=== PATIENT | female | born 1980 | race Caucasian/White ===

== ENCOUNTER 2018-03-20 21:40 | Emergency (ER) | payer OTHER ==
[2018-03-20 21:48] VITALS: BP 111/70; PULSE 88; TEMP 98.1; BMI 20.7
--- NOTE | 2018-03-20 22:16 | PDOC ---
History of Present Illness - General History Source: Patient Exam Limitations: No Limitations - History of Present Illness Initial Comments: 03/20/18 22:18 The patient is a 37 year old 1st trimester female, with no significant PMH, who presents to the emergency department with right thumb injury. The patient was helping her child assemble a toy truck when a small piece of the accel from the wheel went through her right thumb. The patient denies any pain, tingling or numbness. The patient denies any bleeding. Allergies: NKDA Past surgical history: None reported Social history: None reported PCP:None reported <Hailey Chicas - Last Filed: 03/20/18 22:18> <Nory Nava - Last Filed: 03/20/18 23:10> - General Chief Complaint: Injury Stated Complaint: RH 1ST FINGER WO UND Time Seen by Provider: 03/20/18 21:41 Past History <Hailey Chicas - Last Filed: 03/20/18 22:18> - Past Medical History Anemia: No Asthma: No Cancer: No Cardiac Disorders: No CVA: No COPD: No CHF: No Dementia: No Diabetes: No GI Disorders: No Disorders: No HTN: No Hypercholesterolemia: No Liver Disease: No Seizures: No Thyroid Disease: No - Surgical History Abdominal Surgery: No Appendectomy: No Cardiac Surgery: No Cholecystectomy: No Lung Surgery: No Neurologic Surgery: No Orthopedic Surgery: No - Suicide/Smoking/Psychosocial Hx Smoking History: Never smoked Have you smoked in the past 12 months: No Hx Alcohol Use: Yes (SOCIAL) Drug/Substance Use Hx: No Substance Use Type: None Hx Substance Use Treatment: No <Nory Nava - Last Filed: 03/20/18 23:10> - Past Medical History Allergies/Adverse Reactions: Allergies Allergy/AdvReac Type Severity Reaction Status Date / Time No Known Allergies Allergy Verified 01/24/16 09:35 Home Medications: Ambulatory Orders NK [No Known Home Medication] 01/14/16 Review of Systems - Review of Systems Able to Perform ROS?: Yes Comments:: 03/20/18 22:19 GENERAL/CONSTITUTIONAL: No fever or chills. No weakness. HEAD, EYES, EARS, NOSE AND THROAT: No change in vision. No ear pain or discharge. No sore throat. CARDIOVASCULAR: No chest pain or shortness of breath. RESPIRATORY: No cough, wheezing, or hemoptysis. GASTROINTESTINAL: No nausea, vomiting, diarrhea or constipation. GENITOURINARY: No dysuria, frequency, or change in urination. MUSCULOSKELETAL: No joint or muscle swelling or pain. No neck or back pain. SKIN:+Foreign Body in the right thumb NEUROLOGIC: No headache, vertigo, loss of consciousness, or change in strength/ sensation. ENDOCRINE: No increased thirst. No abnormal weight change. HEMATOLOGIC/LYMPHATIC: No anemia, easy bleeding, or history of blood clots. ALLERGIC/IMMUNOLOGIC: No hives or skin allergy. <Austin Chicasjaelyn - Last Filed: 03/20/18 22:18> *Physical Exam - Vital Signs Last Vital Signs Temp Pulse Resp BP Pulse Ox 98.1 F 88 16 111/70 100 03/20/18 21:43 03/20/18 21:43 03/20/18 21:43 03/20/18 21:43 03/20/18 21:43 - Physical Exam Comments: 03/20/18 22:20 GENERAL: Awake, alert, and fully oriented, in no acute distress HEAD: No signs of trauma EYES: PERRLA, EOMI, sclera anicteric, conjunctiva clear ENT: Auricles normal inspection, hearing grossly normal, nares patent, oropharynx clear without exudates. Moist mucosa NECK: Normal ROM, supple, no lymphadenopathy, JVD, or masses LUNGS: Breath sounds equal, clear to auscultation bilaterally. No wheezes, and no crackles HEART: Regular rate and rhythm, normal S1 and S2, no murmurs, rubs or gallops ABDOMEN: Soft, nontender, normoactive bowel sounds. No guarding, no rebound. No masses EXTREMITIES: Normal range of motion, no edema. No clubbing or cyanosis. No cords, erythema, or tenderness NEUROLOGICAL: Cranial nerves II through XII grossly intact. Normal speech, normal gait SKIN: +Right thumb punctate lesion. <Juan FranciscoAustinjaelyn - Last Filed: 03/20/18 22:18> - Vital Signs Last Vital Signs Temp Pulse Resp BP Pulse Ox 98.1 F 88 16 111/70 100 03/20/18 21:43 03/20/18 21:43 03/20/18 21:43 03/20/18 21:43 03/20/18 21:43 <Nory Nava - Last Filed: 03/20/18 23:10> Medical Decision Making - Medical Decision Making 03/20/18 23:09 FB removed with local lidocaine 2% <1ml, and with tweezers and 25ga syringe in a suture kit. Washed with betadine. Dressed with bacitracin. and bandaid. <Nory Nava - Last Filed: 03/20/18 23:10> *DC/Admit/Observation/Transfer - Attestations Scribe Attestion: 03/20/18 22:20 Documentation prepared by Hailey Chicas, acting as medical program specialist for Nory Nava MD. <Hailey Chicas - Last Filed: 03/20/18 22:18> - Discharge Dispostion Decision to Admit order: No <Nory Nava - Last Filed: 03/20/18 23:10> Diagnosis at time of Disposition: Foreign body (FB) in soft tissue - Discharge Dispostion Disposition: HOME Condition at time of disposition: Stable - Referrals Referrals: Angelo Toney MD [Primary Care Provider] - - Patient Instructions Printed Discharge Instructions: DI for Removal of Foreign Body From Skin - Post Discharge Activity Forms/Work/School Notes: Back to Work
== END 2018-03-20 22:23 | disposition home or self-care (01) ==
LOC: FER 21:40
DX: O26.891 Other specified pregnancy related conditions, first trimester (principal); Z3A.00 Weeks of gestation of pregnancy not specified; S61.041A Puncture wound with foreign body of right thumb without damage to nail, initial encounter
CPT/HCPCS: 99281-25